=== PATIENT | male | born 1995 | race Caucasian/White ===

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

== ENCOUNTER 2018-03-08 22:18 | Emergency (ER) | payer BC ==
[2018-03-08 22:34] VITALS: BP 120/87
--- NOTE | 2018-03-08 22:41 | EDPHY ---
H & P Stated Complaint: CUT TIP OF THUMB 1 HR AGO, CHOPPING Source: Patient Exam Limitations: No limitations - Personal History Current Tetanus/Diphtheria Vaccine: Yes - Medical/Surgical History Hx Asthma: Yes Hx Chronic Respiratory Disease: No Hx Diabetes: No Hx Cardiac Disease: No Hx Renal Disease: No Hx Cirrhosis: No Hx Alcoholism: No Hx HIV/AIDS: No Hx Splenectomy or Spleen Trauma: No Other PMH: denies - Social History Smoking Status: Current every day smoker Time Seen by Provider: 03/08/18 22:35 HPI/ROS: HPI: This is a 22-year-old male who presents with Chief Complaint: CUT TIP OF THUMB 1 HR AGO, CHOPPING Location: Right thumb Quality: Injury Duration: Prior to arrival Signs and Symptoms: + bleeding, no radiation, no numbness, no weakness, no tingling, no incontinence, no decreased range of motion, no swelling, no pain, no fever Timing: Acute Severity: Mild Context: Patient is right-hand dominant, presents with complaints of accidentally cutting his right thumb on a knife. He reports that it was is friends knife and he was starting up in the air trying to catch it when he accidentally missed and cut the tip of his right thumb. It immediately started to bleed and despite direct pressure would not stop bleeding. Reports tetanus is current. Denies paresthesias, weakness, decreased range of motion, pain. Modifying Factors: Direct pressure, no relief Comment: ROS: A comprehensive 10 system review of systems is otherwise negative aside from elements mentioned in the history of present illness. MEDICAL/SURGICAL/SOCIAL HISTORY: Medical history: Generally healthy. Does not take any regular medications. Surgical history: Denies Social history: Nonsmoker. Denies drug and alcohol use. CONSTITUTIONAL: Calm and cooperative, young adult white male, awake and alert, no obvious distress HEENT: Atraumatic and normocephalic. NECK: supple EXTREMITIES: 2/2 pulses, strength 5/5, right thumb 1/8 cm superficial skin avulsion sparing the nail-active bleeding noted. DIP/PIP/MCP flexion/extension intact with good light touch sensation. no deformities, no clubbing, no cyanosis or edema. NEUROLOGICAL: no focal neuro deficits. GCS 15. Light touch sensation intact. SKIN: Warm and dry, no erythema. no rash. Good capillary refill. (Tamie,Terra) Constitutional: Initial Vital Signs Temperature (C) 37.1 C 03/08/18 22:32 Heart Rate 80 03/08/18 22:32 Respiratory Rate 22 H 03/08/18 22:32 Blood Pressure 120/87 H 03/08/18 22:32 O2 Sat (%) 96 03/08/18 22:32 O2 Delivery Mode Room Air Allergies/Adverse Reactions: No Known Allergies Allergy (Unverified 12/19/16 17:09) Home Medications: Medication Instructions Recorded NK [No Known Home Meds] 12/19/16 Medical Decision Making Procedures: Procedure: Right thumb bleeding control. After verbal consent was obtained, the patient was anesthetized with 2 mL of 1% lidocaine without epinephrine. The anterior epistaxis was identified. The patient was treated with Surgifoam. Following the procedure the patient was re- examined and the bleeding was well controlled. The patient tolerated the procedure well. The procedure was performed by myself. (Roselia Wlilett) ED Course/Re-evaluation: Tetanus is up-to-date. Local anesthesia provided with hemostasis almost immediately achieved Surgery foam and tube gauze dressing applied. Verbal and written wound care instructions provided. No signs of neurovascular compromise/tenting of skin/compartment syndrome/ extremities and joints examined above and below area of concern and are neurovascularly intact. This patient was seen under the supervision of my secondary supervising physician. I evaluated care for this patient independently. Discussed this patient with Dr. Milan. (Roselia Willett) PHYSICIAN DOCUMENTATION: The patient was evaluated and managed by the Physician Leak Gang Supervisor. My co- signature indicates that I have reviewed this chart and I agree with the findings and plan of care as documented. I am the secondary supervising physician. (Lavern Milan) Differential Diagnosis: Differential diagnosis includes but is not limited to avulsion, nail injury, tendon injury, nerve injury, laceration. (Roselia Willett) Departure - Departure Disposition: Home, Routine, Self-Care Clinical Impression: Avulsion of skin of finger without complication Condition: Good Instructions: Skin Avulsion (ED) Additional Instructions: Keep the dressing dry and in place for 48 hours. After 48 hours, you may remove the dressing; wash the site daily with mild soap and water; then pat dry. Apply topical antibiotic ointment and clean sterile dressing daily until fully healed. Take Tylenol 650 mg every 4 hours and/or Ibuprofen 600 mg every 8 hours with food as needed for pain. Return to the ER immediately if you experience redness, red streaks, have fevers /chills, flu like symptoms, limited range of motion, or any other symptoms that concern you. Referrals: [facility] [Clinic] - As per Instructions
== END 2018-03-08 23:06 | disposition home or self-care (01) ==
PROC: 0HQFXZZ Repair Right Hand Skin, External Approach (ICD-10-PCS; principal; 2018-03-08)
DX: S61.001A Unspecified open wound of right thumb without damage to nail, initial encounter (principal); W26.0XXA Contact with knife, initial encounter; Y93.89 Activity, other specified

== ENCOUNTER 2018-09-23 14:22 | Emergency (ER) | payer BC, OTHER ==
--- NOTE | 2018-09-23 14:49 | EDPHY ---
H & P Stated Complaint: R testiclal , RLQ pain Time Seen by Provider: 09/23/18 14:37 HPI/ROS: CHIEF COMPLAINT: Right testicle pain and swelling HISTORY OF PRESENT ILLNESS: 23-year-old male, immunocompetent, complaining of 2 days of atraumatic right testicle pain, swelling. No [place] seen urgent care referred to the ER for further evaluation. No known history of STD. No trauma no straddle injury. No dysuria hematuria increased frequency. No pain with defecation. No perineal pain. No new sexual partners. No URI symptoms. No sore throat. REVIEW OF SYSTEMS: 10 systems reviewed and negative with the exception of the elements mentioned in the history of present illness PAST MEDICAL & SURGICAL HISTORY: No pertinent medical or surgical history SOCIAL HISTORY: student PHYSICAL EXAM (Prior to examination, patient consented to physical exam, hands were washed and my usual and customary physical exam procedures followed) 1) GENERAL: Well-developed, well-nourished, alert and oriented. Appears to be in no acute distress. 2) HEAD: Normocephalic, atraumatic 3) HEENT: Pupils equal, round, reactive to light bilaterally. Sclera anicteric. 4) NECK: Full range of motion, no meningeal signs. 5) LUNGS: Clear auscultation bilaterally, no wheezes, no rhonchi, no retractions. 6) HEART: Regular rate and rhythm, no murmur, no heave, no gallop. 7) ABDOMEN: No guarding, no rebound, no focal tenderness, negative McBurney's, negative Thompson's, negative Rovsing's, negative peritoneal sign, no inguinal mass or pain. 8) MUSCULOSKELETAL: Moving all extremities, no focal areas of tenderness, no obvious trauma. No peripheral edema or discoloration. 9) BACK: No CVA tenderness, no midline vertebral tenderness, no fluctuance, no step-off, no obvious trauma, no visual or palpable abnormality. 10) SKIN: No rash, no petechiae. 11) : Circumcised, no urethral discharge, right testicle is enlarged, tender with no overlying skin changes to the scrotum. No evidence of Robby's gangrene. Perineum nontender. No crepitus. No high-riding testicle. Bilateral cremasteric reflex present and brisk.. DIFFERENTIAL DIAGNOSIS: In no particular order including but not limited to torsion, Robby's gangrene, epididymitis, orchitis - Personal History Current Tetanus/Diphtheria Vaccine: Yes Current Tetanus Diphtheria and Acellular Pertussis (TDAP): Yes - Medical/Surgical History Hx Asthma: Yes Hx Chronic Respiratory Disease: No Hx Diabetes: No Hx Cardiac Disease: No Hx Renal Disease: No Hx Cirrhosis: No Hx Alcoholism: No Hx HIV/AIDS: No Hx Splenectomy or Spleen Trauma: No Other PMH: asthma, - Social History Smoking Status: Current every day smoker Constitutional: Initial Vital Signs Temperature (C) 36.6 C 09/23/18 14:28 Heart Rate 64 09/23/18 14:28 Respiratory Rate 16 09/23/18 14:28 Blood Pressure 115/81 H 09/23/18 14:28 O2 Sat (%) 99 09/23/18 14:28 O2 Delivery Mode Room Air Allergies/Adverse Reactions: No Known Allergies Allergy (Unverified 09/23/18 14:28) Home Medications: Medication Instructions Recorded Doxycycline Hyclate 100 mg PO BID #20 capsule 09/23/18 Medical Decision Making - Diagnostics Imaging Results: Imaging Impressions Testicular Ultrasound 09/23/18 14:47 Impression: 1. Normal testes. 2. Right-sided epididymitis with small hydrocele. Findings and recommendations discussed with Frances Blue at 3:30 PM, 09/23. Final report concurs with initial preliminary interpretation. Images reviewed myself ED Course/Re-evaluation: 3:31 p.m.: Ultrasound interpreted by staff radiologist is positive for epididymitis. Images reviewed myself. Patient denies engaging in insertive anal sex. With therefore hold on coverage of enteric organisms. He will subsequently be treated with ceftriaxone 250 IM single dose plus doxycycline 100 mg twice a day for 10 days. Urine samples pending. Patient feels comfortable being discharged. All questions and concerns addressed by myself. Patient given my usual and customary discharge precautions and instructions regarding their clinical impression. Care of patient under supervision of primary supervising physician Dr Gordon Mao . - Data Points Laboratory Results: 09/23/18 09/23/18 14:50 14:30 Urine Color YELLOW Urine Appearance CLEAR Urine pH 6.0 (5.0-7.5) Ur Specific [place] 1.014 (1.002-1.030) Urine Protein NEGATIVE (NEGATIVE) Urine Ketones 1+ H (NEGATIVE) Urine Blood 1+ H (NEGATIVE) Urine Nitrate NEGATIVE (NEGATIVE) Urine Bilirubin NEGATIVE (NEGATIVE) Urine Urobilinogen NEGATIVE EU EU (0.2-1.0) Ur Leukocyte Esterase 3+ H (NEGATIVE) Urine RBC 3-5 /hpf H /hpf (0-3) Urine WBC 50-182 /hpf H /hpf (0-3) Ur Epithelial Cells NONE SEEN /lpf /lpf (NONE-1+) Urine Bacteria TRACE /hpf H /hpf (NONE SEEN) Urine Mucus TRACE /lpf /lpf (NONE-1+) Urine Glucose NEGATIVE (NEGATIVE) C.trachomatis RNA (TMA) Pending N.gonorrhoeae RNA (TMA) Pending Medications Given: Discontinued Medications Doxycycline Hyclate (Doxycycline Hyclate) 100 mg PO EDNOW ONE PRN Reason: Protocol Stop: 09/23/18 15:36 Last Admin: 09/23/18 15:56 Dose: 100 mg Departure - Departure Disposition: Home, Routine, Self-Care Clinical Impression: Epididymitis Condition: Good Instructions: Epididymitis (ED), Testicle Pain (ED) Additional Instructions: Return to emergency department if you develop abdominal pain, fevers, worsening testicle pain or any other symptoms that concern you Referrals: Naida Aguilar MD [Medical Doctor] - 5-7 days, call for appt. (Dr. Aguilar is a urologist) Prescriptions: Doxycycline Hyclate 100 mg PO BID #20 capsule
[2018-09-23] MEDS ORDERED: DOXYCYCLINE HYCLATE 100 MG CAP/TAB PO ONE (15:35)
[2018-09-23 15:58] VITALS: BP 134/79
[2018-09-24 11:52] LABS: GC AMPLIFICATION GENPROBE NEGATIVE (NEGATIVE)
== END 2018-09-23 16:01 | disposition home or self-care (01) ==
DX: N45.1 Epididymitis (principal); N43.3 Hydrocele, unspecified; F17.200 Nicotine dependence, unspecified, uncomplicated
CPT/HCPCS: J0696